=== PATIENT | female | born 2000 | race Caucasian/White ===

== ENCOUNTER 2020-07-25 21:11 | Emergency (ER) | payer OTHER ==
[2020-07-25 22:54] LABS: BILIRUBIN NEGATIVE (NEGATIVE); BLOOD 2+ Ery/uL (NEGATIVE); CLARITY HAZY (CLEAR); COLOR YELLOW (YELLOW); GLUCOSE (U) NORMAL (NORMAL); LEUKOCYTES NEGATIVE Leu/uL (NEGATIVE); NITRITE NEGATIVE (NEGATIVE); PROTEIN NEGATIVE (NEGATIVE); SPECIFIC GRAVITY >=1.030 (1.001-1.030); UROBILINOGEN 0.2 mg/dL (0.2-1.0)
[2020-07-25 23:01] LABS: BACTERIA 2+; URINARY WBC RARE
[2020-07-25 23:21] LABS: ALBUMIN 3.6 g/dL (3.4-5.0); BILIRUBIN - TOTAL 0.5 mg/dL (0.2-1.0); BUN/CREAT RATIO (CALC) 17.1 RATIO; C-REACTIVE PROTEIN 2.4 mg/dL (<=0.90); CREATININE 0.76 mg/dL (0.51-0.95); GLOBULIN (CALCULATION) 3.4 g/dL; POTASSIUM 3.3 mmol/L (3.5-5.1)
[2020-07-25 23:31] LABS: LACTIC ACID 0.8 mmol/L (0.4-1.9)
== END 2020-07-26 01:00 | disposition home or self-care (01) ==
LOC: FER 21:11
PROVIDERS: Emergency Medicine
DX: R50.83 Postvaccination fever (principal); T50.B95A Adverse effect of other viral vaccines, initial encounter; F17.290 Nicotine dependence, other tobacco product, uncomplicated
CPT/HCPCS: 36415; 71275; 80053; 81001; 82728; 83605; 84145; 85379; 86140; 87040; 93005; J7030; Q9967

== ENCOUNTER 2021-01-01 19:52 | Emergency (ER) | payer OTHER | END 2021-01-01 21:01 | disposition home or self-care (01) | LOC: FER 19:52 | DX: R07.89 Other chest pain (principal); F17.290 Nicotine dependence, other tobacco product, uncomplicated | CPT/HCPCS: 93005 ==